=== PATIENT | female | born 1950 | race African-American/Black ===

== ENCOUNTER 2016-10-13 09:03 | Outpatient (CLI) | payer MEDICARE ==
--- NOTE | 2016-10-13 10:57 | Mammography Report ---
BONE DENSITY STUDY: DEFINITIONS: BMD = Bone Mineral Density T-score = BMD related to mean peak bone mass of young adult (mean expressed in Standard Deviation) Z-score = Age matched BMD expressed in SD World Health Organization (WHO) Diagnostic Criteria Normal T-score > -1 SD Osteopenia T-score between -1 and -2.4 SD Osteoporosis T-score -2.5 SD or below FINDINGS: The weighted average BMD of lumbar spine L1-L4 is 0.983 with a T-score of -0.6. The weighted average BMD of hip is 0.887 with a T-score of -0.4. IMPRESSION: The patient's T-score is diagnostic for normal bone density and low relative risk for fracture. NOTE: BMD is not the only risk factor for fracture; also consider factors such as the patient's age, risk of falling, previous osteoporotic fracture, family history of osteoporotic fractures, current smoker, and low body weight. Martin's triangle is a region of interest in femur, predominantly of trabecular bone. It is not a true anatomic site, and ISCD does not recommend its use clinically.
== END 2016-10-13 09:04 | disposition home or self-care (01) ==
LOC: MAMMO 09:03
DX: Z13.820 Encounter for screening for osteoporosis (principal); I10 Essential (primary) hypertension
CPT/HCPCS: 77080

== ENCOUNTER 2019-12-10 11:53 | Observation (INO) | payer MEDICARE ==
[2019-12-10] MEDS ORDERED: ASPIRIN 325 MG TAB PO ONE (12:08)
[2019-12-10 12:30] LABS: Basophils % (Auto) 0.8 % (0.0-1.8); Eosinophils # (Auto) 0.2 K/mm3 (0.0-0.4); Eosinophils % (Auto) 2.5 % (0.0-4.3); Hematocrit 36.3 % (30.3-42.9); Hemoglobin 12.2 gm/dl (10.1-14.3); Lymphocytes # (Auto) 1.8 K/mm3 (1.2-5.4); Lymphocytes % (Auto) 28.5 % (13.4-35.0); Mean Corpuscular HGB Conc 34 % (30-34); Mean Corpuscular Volume 95 fl (79-97); Monocytes # (Auto) 0.5 K/mm3 (0.0-0.8); Monocytes % (Auto) 7.7 % (0.0-7.3); Platelet Count 225 K/mm3 (140-440); Red Blood Count 3.83 M/mm3 (3.65-5.03); Red Cell Distribution Width 14.9 % (13.2-15.2)
--- NOTE | 2019-12-10 12:46 | XRay Report ---
CHEST 2 VIEWS INDICATION / CLINICAL INFORMATION: Chest Pain. COMPARISON: 05/15/14. FINDINGS: SUPPORT DEVICES: None. HEART / MEDIASTINUM: The heart size and pulmonary vasculature are normal. The aorta is normal in [place]. LUNGS / PLEURA: No significant pulmonary or pleural abnormality. No pneumothorax. ADDITIONAL FINDINGS: No significant additional findings. IMPRESSION: No acute findings. Signer Name: Patrick Mckinney MD Signed: 12/10/2019 12:42 PM Workstation Name: [id number]
[2019-12-10 12:54] LABS: BUN/Creatinine Ratio 26; Blood Urea Nitrogen 21 mg/dL (7-17); Calcium 10.1 mg/dL (8.4-10.2); Hemolysis Index 11
--- NOTE | 2019-12-10 17:27 | Emergency Department Report ---
ED Chest Pain HPI - General Chief Complaint: Chest Pain Stated Complaint: CHEST PAIN Time Seen by Provider: 12/10/19 17:08 Source: patient, family Mode of arrival: Ambulatory Limitations: Language Barrier - History of Present Illness Initial Comments: This is a 69-year-old [place]in[place] female who presents to the emergency department from home with complaint of some generalized chest discomfort, that she describes as a tightness and heaviness, that has been going on intermittently since 11/27/2019. The chest discomfort worsens at night and when laying flat. Patient has a past medical history that includes arthritis, diabetes, hypertension, high cholesterol. Her primary care physician is Dr. Brian, and she follows with Dr. Álvarez at [facility] cardiology. She was previously prescribed sublingual nitro, and more recently was given Imdur 30 mg twice daily. She has been taking the Imdur, took a sublingual nitroglycerin last night and then again earlier today, but continues to have this chest discomfort. She is scheduled to have an outpatient stress test done on Wednesday. She denies any tobacco use. No recent travel or sick contacts at home. She denies any fever, lower extremity swelling, nausea, vomiting. The patient speaks Khmer and her daughter is currently at bedside translating for us. Severity scale (0 -10): 6 - Related Data Home Medications Medication Instructions Recorded Confirmed Last Taken Aspirin EC [Halfprin EC] 81 mg PO QDAY 05/15/14 12/10/19 12/09/19 Atorvastatin (Nf) [Lipitor (Nf)] 20 mg PO QDAY 05/15/14 12/10/19 12/10/19 Gabapentin 300 mg PO BID 05/15/14 12/10/19 12/10/19 Meclizine [Antivert] 25 mg PO BID PRN 05/15/14 12/10/19 Unknown carvediloL [Coreg] 6.25 mg PO BID 05/15/14 12/10/19 12/10/19 Esomeprazole Magnesium [NexIUM] 40 mg PO BID 12/10/19 12/10/19 12/10/19 ISOSORBIDE MONOnitrate [Imdur ER] 30 mg PO QAM 12/10/19 12/10/19 12/09/19 Latanoprost 0.005% [Xalatan 0.005%] 1 drop OP QPM 12/10/19 12/10/19 12/09/19 Lifitegrast [Xiidra] 1 each OP BID 12/10/19 12/10/19 12/10/19 Losartan Potassium 25 mg PO QDAY 12/10/19 12/10/19 12/10/19 Metformin HCl [Glucophage] 1,000 mg PO BID 12/10/19 12/10/19 12/10/19 Nitroglycerin [Nitrostat] 0.4 mg SL Q5M PRN 12/10/19 12/10/19 12/10/19 Timolol Maleate [Istalol] 2.5 ml OP QDAY 12/10/19 12/10/19 12/10/19 glipiZIDE [Glucotrol] 5 mg PO ACHS 12/10/19 12/10/19 12/10/19 Allergies Allergy/AdvReac Type Severity Reaction Status Date / Time lisinopril Allergy Unknown Verified 05/14/14 19:33 Heart Score - HEART Score History: Moderately suspicious EKG: Normal Age: > 65 Risk factors: > 3 risk factors or hx of atherosclerotic disease Troponin: < normal limit HEART Score: 5 - Critical Actions Critical Actions: 4-6 pts:12-16.6% risk of adverse cardiac event. Should be admitted ED Review of Systems ROS: Stated complaint: CHEST PAIN Other details as noted in HPI Comment: All other systems reviewed and negative Constitutional: denies: chills, fever Eyes: denies: eye pain, vision change ENT: denies: ear pain, throat pain Respiratory: denies: cough, shortness of breath Cardiovascular: chest pain. denies: edema Gastrointestinal: denies: abdominal pain, vomiting Genitourinary: denies: dysuria, discharge Musculoskeletal: denies: back pain, arthralgia Skin: denies: rash, lesions Neurological: denies: headache, weakness ED Past Medical Hx - Past Medical History Previous Medical History?: Yes Hx Hypertension: Yes Hx Diabetes: Yes Hx Arthritis: Yes Hx Headaches / Migraines: Yes Additional medical history: high chol - Surgical History Past Surgical History?: Yes Hx Appendectomy: Yes Additional Surgical History: hysterectomy, fibroid removal, mesh repair in abdomen. - Social History Smoking Status: Never Smoker Substance Use Type: None - Medications Home Medications: Home Medications Medication Instructions Recorded Confirmed Last Taken Type Aspirin EC [Halfprin EC] 81 mg PO QDAY 05/15/14 12/10/19 12/09/19 History Atorvastatin (Nf) [Lipitor (Nf)] 20 mg PO QDAY 05/15/14 12/10/19 12/10/19 History Gabapentin 300 mg PO BID 05/15/14 12/10/19 12/10/19 History Meclizine [Antivert] 25 mg PO BID PRN 05/15/14 12/10/19 Unknown History carvediloL [Coreg] 6.25 mg PO BID 05/15/14 12/10/19 12/10/19 History Esomeprazole Magnesium [NexIUM] 40 mg PO BID 12/10/19 12/10/19 12/10/19 History ISOSORBIDE MONOnitrate [Imdur ER] 30 mg PO QAM 12/10/19 12/10/19 12/09/19 History Latanoprost 0.005% [Xalatan 0.005%] 1 drop OP QPM 12/10/19 12/10/19 12/09/19 History Lifitegrast [Xiidra] 1 each OP BID 12/10/19 12/10/19 12/10/19 History Losartan Potassium 25 mg PO QDAY 12/10/19 12/10/19 12/10/19 History Metformin HCl [Glucophage] 1,000 mg PO BID 12/10/19 12/10/19 12/10/19 History Nitroglycerin [Nitrostat] 0.4 mg SL Q5M PRN 12/10/19 12/10/19 12/10/19 History Timolol Maleate [Istalol] 2.5 ml OP QDAY 12/10/19 12/10/19 12/10/19 History glipiZIDE [Glucotrol] 5 mg PO ACHS 12/10/19 12/10/19 12/10/19 History ED Physical Exam - General Limitations: Language Barrier - Other Other exam information: GENERAL: The patient is well-developed well-nourished. HENT: Normocephalic. Atraumatic. Patient has moist mucous membranes. EYES: Extraocular motions are intact. NECK: Supple. Trachea is midline. CHEST/LUNGS: Clear to auscultation. There is no respiratory distress noted. HEART/CARDIOVASCULAR: Regular. There is no tachycardia. There is no murmur. ABDOMEN: Abdomen is soft, nontender. Patient has normal bowel sounds. SKIN: Skin is warm and dry. NEURO: The patient is awake, alert, and cooperative. The patient has no focal neurologic deficits. Normal speech. MUSCULOSKELETAL: There is no tenderness or deformity. There is no limitation range of motion. ED Course Vital Signs 12/10/19 12/10/19 12/10/19 11:57 17:48 17:50 Temperature 97.8 F Pulse Rate 75 Respiratory 18 14 Rate Blood Pressure Blood Pressure 112/70 [Right] O2 Sat by Pulse 97 98 96 Oximetry 12/10/19 12/10/19 12/10/19 18:00 18:15 18:30 Temperature Pulse Rate 83 70 82 Respiratory 12 14 17 Rate Blood Pressure 175/102 175/102 146/84 Blood Pressure [Right] O2 Sat by Pulse 96 96 Oximetry 12/10/19 12/10/19 12/10/19 18:45 19:00 19:11 Temperature Pulse Rate 79 81 84 Respiratory 16 19 17 Rate Blood Pressure 146/84 132/76 132/76 Blood Pressure [Right] O2 Sat by Pulse 97 96 97 Oximetry 12/10/19 12/10/19 12/10/19 19:21 19:31 19:41 Temperature Pulse Rate 79 82 Respiratory 16 11 L Rate Blood Pressure 132/76 144/75 144/75 Blood Pressure [Right] O2 Sat by Pulse 97 97 Oximetry 12/10/19 12/10/19 12/10/19 19:51 20:14 20:20 Temperature 98.2 F Pulse Rate 84 96 H Respiratory 11 L 20 Rate Blood Pressure 144/75 144/75 159/95 Blood Pressure [Right] O2 Sat by Pulse 97 82 L 98 Oximetry KRISTINA score - Kristina Score Age > 65: (1) Yes Aspirin use within the Past 7 Days: (1) Yes 3 or more CAD Risk Factors: (1) Yes 2 or more Angina events in past 24 hrs: (1) Yes Known CAD with more than 50% Stenosis: (0) No Elevated Cardiac Markers: (0) No ST Deviation Greater than 0.5mm: (0) No KRISTINA Score: 4 ED Medical Decision Making - Lab Data Result diagrams: 12/10/19 12:17 12/10/19 12:17 - EKG Data -: EKG Interpreted by Me EKG shows normal: sinus rhythm, axis, intervals, QRS complexes, ST-T waves Rate: normal - EKG Data When compared to previous EKG there are: no significant change Interpretation: unchanged when compared t (05/15/14) - Radiology Data Radiology results: image reviewed interpreted by me: Chest x-ray does not show any acute process. There are no pleural effusions, obvious pneumonia and there is no pneumothorax. No significant cardiomegaly. - Medical Decision Making This patient presents to the emergency department with some generalized chest tightness and heaviness that is been going on intermittently for the past 2 weeks. Since last night the patient has continued to have this discomfort despite taking Imdur and sublingual nitroglycerin. EKG is not consistent with any ST elevation myocardial infarction. Chest x-ray does not show any acute process. The patient's labs have been unremarkable including CBC, metabolic panel and negative troponins x2 thus far. The patient is due to have a stress test on Wednesday. With the current chest discomfort and/or angina that is res istant to the pain medication and vasodilators, the patient will be admitted to the hospital for further evaluation and treatment. She has a moderate heart and KRISTINA score. Patient was accepted for admission by the hospitalist, Dr. Mayorga. Critical Care Time: No Critical care attestation.: If time is entered above; I have spent that time in minutes in the direct care of this critically ill patient, excluding procedure time. ED Disposition Clinical Impression: Angina at rest, Acute chest pain Hypertension Qualifiers: Hypertension type: essential hypertension Qualified Code(s): I10 - Essential (primary) hypertension Disposition: OP ADMIT IP TO THIS HOSP Is pt being admited?: Yes Condition: Fair Time of Disposition: 17:27
[2019-12-10] MEDS ORDERED: ASPIRIN 325 MG TAB ONE (17:45)
--- NOTE | 2019-12-10 23:38 | History and Physical Report ---
History of Present Illness Date of examination: 12/10/19 Date of admission: 12/10/19 17:44 Chief complaint: Chest pain off and on since 11/27/2019 History of present illness: 69-year Turkmen female with history of hyperlipidemia, peripheral neuropathy, hypertension, coronary artery disease, GERD, glaucoma, and type 2 diabetes comes in for generalized chest discomfort intermittently off and on since 11/27/2019. Chest discomfort worsens at night and when lying. Patient follows with [facility] cardiology. Patient was prescribed sublingual nitro and Imdur twice daily. She has been taking them some relief but continues to have chest pain. She is scheduled to have outpatient stress test on Wednesday but comes into the emergency room because of the persistent and intermittent chest pain. - Past Medical History Previous Medical History?: Yes Hypertension: Yes Diabetes: Yes Arthritis: Yes Headaches / Migraines: Yes Additional medical history: high chol - Surgical History Past Surgical History?: Yes Hx Appendectomy: Yes Additional Surgical History: hysterectomy, fibroid removal, mesh repair in abdomen. - Social History Smoking Status: Never Smoker Substance Use Type: None Family history Htn - Medications Home Medications: Home Medications Medication Instructions Recorded Confirmed Last Taken Type Aspirin EC [Halfprin EC] 81 mg PO QDAY 05/15/14 12/10/19 12/09/19 History Atorvastatin (Nf) [Lipitor (Nf)] 20 mg PO QDAY 05/15/14 12/10/19 12/10/19 History Gabapentin 300 mg PO BID 05/15/14 12/10/19 12/10/19 History Meclizine [Antivert] 25 mg PO BID PRN 05/15/14 12/10/19 Unknown History carvediloL [Coreg] 6.25 mg PO BID 05/15/14 12/10/19 12/10/19 History Esomeprazole Magnesium [NexIUM] 40 mg PO BID 12/10/19 12/10/19 12/10/19 History ISOSORBIDE MONOnitrate [Imdur ER] 30 mg PO QAM 12/10/19 12/10/19 12/09/19 History Latanoprost 0.005% [Xalatan 0.005%] 1 drop OP QPM 12/10/19 12/10/19 12/09/19 History Lifitegrast [Xiidra] 1 each OP BID 12/10/19 12/10/19 12/10/19 History Losartan Potassium 25 mg PO QDAY 12/10/19 12/10/19 12/10/19 History Metformin HCl [Glucophage] 1,000 mg PO BID 12/10/19 12/10/19 12/10/19 History Nitroglycerin [Nitrostat] 0.4 mg SL Q5M PRN 12/10/19 12/10/19 12/10/19 History Timolol Maleate [Istalol] 2.5 ml OP QDAY 12/10/19 12/10/19 12/10/19 History glipiZIDE [Glucotrol] 5 mg PO ACHS 12/10/19 12/10/19 12/10/19 History Review of Systems ROS: Stated complaint: CHEST PAIN Other details as noted in HPI Comment: All other systems reviewed and negative Constitutional: denies: chills, fever Eyes: denies: eye pain, vision change ENT: denies: ear pain, throat pain Respiratory: denies: cough, shortness of breath Cardiovascular: chest pain. denies: edema Gastrointestinal: denies: abdominal pain, vomiting Genitourinary: denies: dysuria, discharge Musculoskeletal: denies: back pain, arthralgia Skin: denies: rash, lesions Neurological: denies: headache, weakness Medications and Allergies Allergies Allergy/AdvReac Type Severity Reaction Status Date / Time lisinopril Allergy Unknown Verified 05/14/14 19:33 Home Medications Medication Instructions Recorded Confirmed Last Taken Type Aspirin EC [Halfprin EC] 81 mg PO QDAY 05/15/14 12/10/19 12/09/19 History Atorvastatin (Nf) [Lipitor (Nf)] 20 mg PO QDAY 05/15/14 12/10/19 12/10/19 Hist ory Gabapentin 300 mg PO BID 05/15/14 12/10/19 12/10/19 History Meclizine [Antivert] 25 mg PO BID PRN 05/15/14 12/10/19 Unknown History carvediloL [Coreg] 6.25 mg PO BID 05/15/14 12/10/19 12/10/19 History Esomeprazole Magnesium [NexIUM] 40 mg PO BID 12/10/19 12/10/19 12/10/19 History ISOSORBIDE MONOnitrate [Imdur ER] 30 mg PO QAM 12/10/19 12/10/19 12/09/19 History Latanoprost 0.005% [Xalatan 0.005%] 1 drop OP QPM 12/10/19 12/10/19 12/09/19 History Lifitegrast [Xiidra] 1 each OP BID 12/10/19 12/10/19 12/10/19 History Losartan Potassium 25 mg PO QDAY 12/10/19 12/10/19 12/10/19 History Metformin HCl [Glucophage] 1,000 mg PO BID 12/10/19 12/10/19 12/10/19 History Nitroglycerin [Nitrostat] 0.4 mg SL Q5M PRN 12/10/19 12/10/19 12/10/19 History Timolol Maleate [Istalol] 2.5 ml OP QDAY 12/10/19 12/10/19 12/10/19 History glipiZIDE [Glucotrol] 5 mg PO ACHS 12/10/19 12/10/19 12/10/19 History Exam - Constitutional Vitals: Temp Pulse Resp BP Pulse Ox 98.2 F 96 H 20 159/95 98 12/10/19 20:20 12/10/19 20:20 12/10/19 20:20 12/10/19 20:20 12/10/19 20:20 General appearance: Present: no acute distress, well-nourished - EENT Eyes: Present: PERRL ENT: hearing intact, clear oral mucosa - Neck Neck: Present: supple, normal ROM - Respiratory Respiratory effort: normal Respiratory: bilateral: CTA - Cardiovascular Rhythm: regular Heart Sounds: Present: S1 & S2. Absent: rub, click - Extremities Extremities: pulses symmetrical, No edema Peripheral Pulses: within normal limits - Abdominal General gastrointestinal: Present: soft, non-tender, non-distended, normal bowel sounds Female genitourinary: Present: normal - Integumentary Integumentary: Present: clear, warm, dry - Musculoskeletal Musculoskeletal: gait normal, strength equal bilaterally - Psychiatric Psychiatric: appropriate mood/affect, intact judgment & insight - Neurologic Neurologic: CNII-XII intact, moves all extremities HEART Score - HEART Score History: Highly suspicious (78) EKG: Normal Age: > 65 Risk factors: > 3 risk factors or hx of atherosclerotic disease Troponin: Troponin T < 0.010 ng/mL (0.00-0.029) 12/10/19 17:38 Troponin: < normal limit HEART Score: 6 - Critical Actions Critical Actions: 4-6 pts:12-16.6% risk of adverse cardiac event. Should be admitted Results - Labs CBC & Chem 7: 12/10/19 12:17 12/10/19 12:17 Labs: Laboratory Last Values WBC 6.3 K/mm3 (4.5-11.0) 12/10/19 12:17 RBC 3.83 M/mm3 (3.65-5.03) 12/10/19 12:17 Hgb 12.2 gm/dl (10.1-14.3) 12/10/19 12:17 Hct 36.3 % (30.3-42.9) 12/10/19 12:17 MCV 95 fl (79-97) 12/10/19 12:17 MCH 32 pg (28-32) 12/10/19 12:17 MCHC 34 % (30-34) 12/10/19 12:17 RDW 14.9 % (13.2-15.2) 12/10/19 12:17 Plt Count 225 K/mm3 (140-440) 12/10/19 12:17 Lymph % (Auto) 28.5 % (13.4-35.0) 12/10/19 12:17 [place] % (Auto) 7.7 % (0.0-7.3) H 12/10/19 12:17 Eos % (Auto) 2.5 % (0.0-4.3) 12/10/19 12:17 Baso % (Auto) 0.8 % (0.0-1.8) 12/10/19 12:17 Lymph # 1.8 K/mm3 (1.2-5.4) 12/10/19 12:17 [place] # 0.5 K/mm3 (0.0-0.8) 12/10/19 12:17 Eos # 0.2 K/mm3 (0.0-0.4) 12/10/19 12:17 Baso # 0.0 K/mm3 (0.0-0.1) 12/10/19 12:17 Seg Neutrophils % 60.5 % (40.0-70.0) 12/10/19 12:17 Seg Neutrophils # 3.8 K/mm3 (1.8-7.7) 12/10/19 12:17 Sodium 142 mmol/L (137-145) 12/10/19 12:17 Potassium 5.1 mmol/L (3.6-5.0) H 12/10/19 12:17 Chloride 105.2 mmol/L (98-107) 12/10/19 12:17 Carbon Dioxide 24 mmol/L (22-30) 12/10/19 12:17 Anion Gap 18 mmol/L 12/10/19 12:17 BUN 21 mg/dL (7-17) H 12/10/19 12:17 Creatinine 0.8 mg/dL (0.6-1.2) 12/10/19 12:17 Estimated GFR > 60 ml/min 12/10/19 12:17 BUN/Creatinine Ratio 26 % 12/10/19 12:17 Glucose 85 mg/dL (65-100) 12/10/19 12:17 Calcium 10.1 mg/dL (8.4-10.2) 12/10/19 12:17 Troponin T < 0.010 ng/mL (0.00-0.029) 12/10/19 17:38 Short CBC 12/10/19 Range/Units 12:17 WBC 6.3 (4.5-11.0) K/mm3 Hgb 12.2 (10.1-14.3) gm/dl Hct 36.3 (30.3-42.9) % Plt Count 225 (140-440) K/mm3 BMP 12/10/19 12:17 Sodium 142 Potassium 5.1 H Chloride 105.2 Carbon Dioxide 24 BUN 21 H Creatinine 0.8 Glucose 85 Calcium 10.1 Cardiac Enzymes 12/10/19 12/10/19 12/10/19 Range/Units 12:17 14:45 17:38 Troponin T < 0.010 < 0.010 < 0.010 (0.00-0.029) ng/mL - Imaging and Cardiology EKG: report reviewed (Sinus rhythm heart rate of 78/min no acute ST-T wave changes) Chest x-ray: report reviewed (No acute findings) Marsh/IV: IV Catheter Type [Right Hand] INT / Saline Lock Assessment and Plan Advance Directives: Yes (Full code) VTE prophylaxis?: Chemical Plan of care discussed with patient/family: Yes - Patient Problems (1) Acute chest pain Current Visit: Yes Status: Acute Plan to address problem: Serial troponins Lexiscan in the morning Cardiology consult (2) T2DM (type 2 diabetes mellitus) Current Visit: Yes Status: Chronic Qualifiers: Diabetes mellitus long wall shear operator insulin use: unspecified long wall shear operator insulin use status Plan to address problem: Coverage for now check hemoglobin A1c (3) Hypertension Current Visit: Yes Status: Chronic Qualifiers: Hypertension type: essential hypertension Qualified Code(s): I10 - Essential (primary) hypertension Plan to address problem: Continue antihypertensives (4) CAD (coronary artery disease) Current Visit: No Status: Chronic Plan to address problem: Continue ISMO (5) Hyperlipidemia Current Visit: No Status: Chronic Plan to address problem: Continue statins (6) Hyperkalemia Current Visit: Yes Status: Acute Plan to address problem: Mild IV fluids (7) DVT prophylaxis Current Visit: Yes Status: Acute Plan to address problem: On heparin and GI prophylaxis
[2019-12-10] MEDS ORDERED: MECLIZINE 25 MG TAB PO PRN (23:40)
[2019-12-10] MEDS ORDERED: oxyCODONE /ACETAMINOPHEN 5-325MG TAB PO PRN (23:43)
[2019-12-10] MEDS ORDERED: ONDANSETRON 4 MG/2 ML INJ IV PRN (23:43)
[2019-12-10] MEDS ORDERED: HYDROmorphone 1 MG/1 ML INJ IV PRN (23:43)
[2019-12-10] MEDS ORDERED: ACETAMINOPHEN 325 MG TAB PO PRN (23:43)
[2019-12-10] MEDS ORDERED: METOCLOPRAMIDE 10 MG/2 ML INJ IV PRN ×2 (23:43→23:51)
[2019-12-10] MEDS ORDERED: LIFITEGRAST OP SCH (23:45)
[2019-12-11] MEDS: carvediloL 6.25 MG TAB PO SCH ×2 (00:14→12:38)
[2019-12-11] MEDS ORDERED: glipiZIDE 5 MG TAB PO SCH (07:30)
[2019-12-11 08:29] LABS: Basophils % (Auto) 0.6 % (0.0-1.8); Eosinophils # (Auto) 0.2 K/mm3 (0.0-0.4); Hematocrit 38.2 % (30.3-42.9); Hemoglobin 12.8 gm/dl (10.1-14.3); Lymphocytes # (Auto) 1.6 K/mm3 (1.2-5.4); Lymphocytes % (Auto) 28.9 % (13.4-35.0); Mean Corpuscular HGB Conc 33 % (30-34); Mean Corpuscular Volume 92 fl (79-97); Monocytes # (Auto) 0.5 K/mm3 (0.0-0.8); Monocytes % (Auto) 8.2 % (0.0-7.3); Platelet Count 216 K/mm3 (140-440); Red Blood Count 4.14 M/mm3 (3.65-5.03); Red Cell Distribution Width 15.2 % (13.2-15.2)
[2019-12-11] MEDS ORDERED: REGADENOSON 0.4 MG/5 ML INJ IV ONE (08:38)
[2019-12-11] MEDS: metFORMIN 500 MG TAB PO SCH ×2 (08:49→17:48)
[2019-12-11 09:01] LABS: Alanine Aminotransferase 21 units/L (7-56); Albumin 4.4 g/dL (3.9-5); Blood Urea Nitrogen 15 mg/dL (7-17); Calcium 9.8 mg/dL (8.4-10.2); Hemolysis Index 4
[2019-12-11 09:02] LABS: BUN/Creatinine Ratio 25
[2019-12-11] MEDS ORDERED: TIMOLOL MALEATE OP SCH (10:00)
[2019-12-11] MEDS ORDERED: ASPIRIN EC 81 MG TAB PO SCH (10:00)
[2019-12-11] MEDS ORDERED: LOSARTAN POTASSIUM 25 MG PO SCH (10:00)
[2019-12-11] MEDS ORDERED: NON-FORMULARY EACH (Esomeprazole Magnesium [Nexium] 40 MG) PO SCH (10:00)
[2019-12-11] MEDS ORDERED: NON-FORMULARY EACH (Metformin Hcl [Glucophage] 1,000 MG) PO SCH (10:00)
[2019-12-11] MEDS ORDERED: FAMOTIDINE 20 MG/2 ML INJ IV SCH (10:00)
[2019-12-11] MEDS ORDERED: GABAPENTIN 300 MG CAP PO SCH (10:00)
[2019-12-11] MEDS ORDERED: PANTOPRAZOLE 40 MG TAB PO SCH (10:00)
[2019-12-11] MEDS ORDERED: LOSARTAN 25 MG TAB PO SCH (10:00)
[2019-12-11] MEDS: glipiZIDE 5 MG TAB PO SCH ×2 (11:09→17:48)
--- NOTE | 2019-12-11 12:31 | Consultation ---
History of Present Illness Consult date: 12/11/19 Requesting physician: AMERICA WADE Consult reason: chest pain History of present illness: The patient is a 69 YO female with a past medial history of nonobstructive CAD, HTN, DM, HLP, GERD. She is followed in our office by Dr. Álvarez. She presented with c/o intermittent chest pain since 11/27/2019. Pt describes her ch est discomfort as a heaviness which is aggravated by lying down, lasts 5-10 minutes per episode. Pt was seen via telehealth appointment by Dr. Álvarez on 12/07/2019 and was initiated on Imdur and scheduled for OP lexiscan MPI stress test on 12/12/2019. However, her chest pain worsened and thus she decided to present to ED for further eval/management. Pt denies any SOB, palpitations, n/v, diaphoresis, dizziness or syncope. LHC done 04/2014 showed mild CAD, LAD with scattered LI, prox RCA 25% stenosis, normal EF. tte done 05/2014 showed EF 55-60%, no significant abnormalities. Past History Past Medical History: other (as per HPI) Medications and Allergies Allergies Allergy/AdvReac Type Severity Reaction Status Date / Time lisinopril Allergy Unknown Verified 05/14/14 19:33 Home Medications Medication Instructions Recorded Confirmed Last Taken Type Aspirin EC [Halfprin EC] 81 mg PO QDAY 05/15/14 12/10/19 12/09/19 History Atorvastatin (Nf) [Lipitor (Nf)] 20 mg PO QDAY 05/15/14 12/10/19 12/10/19 History Gabapentin 300 mg PO BID 05/15/14 12/10/19 12/10/19 History Meclizine [Antivert] 25 mg PO BID PRN 05/15/14 12/10/19 Unknown History carvediloL [Coreg] 6.25 mg PO BID 05/15/14 12/10/19 12/10/19 History Esomeprazole Magnesium [NexIUM] 40 mg PO BID 12/10/19 12/10/19 12/10/19 History ISOSORBIDE MONOnitrate [Imdur ER] 30 mg PO QAM 12/10/19 12/10/19 12/09/19 History Latanoprost 0.005% [Xalatan 0.005%] 1 drop OP QPM 12/10/19 12/10/19 12/09/19 His tory Lifitegrast [Xiidra] 1 each OP BID 12/10/19 12/10/19 12/10/19 History Losartan Potassium 25 mg PO QDAY 12/10/19 12/10/19 12/10/19 History Metformin HCl [Glucophage] 1,000 mg PO BID 12/10/19 12/10/19 12/10/19 History Nitroglycerin [Nitrostat] 0.4 mg SL Q5M PRN 12/10/19 12/10/19 12/10/19 History Timolol Maleate [Istalol] 2.5 ml OP QDAY 12/10/19 12/10/19 12/10/19 History glipiZIDE [Glucotrol] 5 mg PO ACHS 12/10/19 12/10/19 12/10/19 History Active Meds: Active Medications Acetaminophen (Tylenol) 650 mg PO Q4H PRN PRN Reason: Pain MILD(1-3)/Fever >100.5/[place] Aspirin (Halfprin Ec) 81 mg PO QDAY [facility] Atorvastatin Calcium (Lipitor) 20 mg PO QDAY [facility] Carvedilol (Coreg) 6.25 mg PO BID [facility] Last Admin: 12/11/19 00:14 Dose: 6.25 mg Documented by: Gabapentin (Gabapentin) 300 mg PO BID [facility] Glipizide (Glucotrol) 5 mg PO BIDDIAB [facility] Last Admin: 12/11/19 11:09 Dose: Not Given Documented by: Hydromorphone HCl (Dilaudid) 0.5 mg IV Q3H PRN PRN Reason: Pain , Severe (7-10) Isosorbide Mononitrate (Imdur) 30 mg PO QAM [facility] Latanoprost (Latanoprost 0.005%) 1 drops OD QPM [facility] Losartan Potassium (Cozaar) 25 mg PO QDAY [facility] Meclizine HCl (Antivert) 25 mg PO BID PRN PRN Reason: Vertigo Metformin HCl (Glucophage) 1,000 mg PO BIDDIAB [facility] Last Admin: 12/11/19 08:49 Dose: Not Given Documented by: Metoclopramide HCl (Reglan) 5 mg IV Q6H PRN PRN Reason: Nausea And Vomiting Miscellaneous Medication (Lifitegrast [Xiidra]) 1 each OP BID [facility] Miscellaneous Medication (Timolol Maleate [Istalol]) 2.5 ml OP QDAY [facility] Ondansetron HCl (Zofran) 4 mg IV Q8H PRN PRN Reason: Nausea And Vomiting Oxycodone/Acetaminophen (Percocet 5/325) 1 tab PO Q6H PRN PRN Reason: Pain, Moderate (4-6) Pantoprazole Sodium (Protonix) 40 mg PO BID CHINMAY Sodium Chloride (Sodium Chloride Flush Syringe 10 Ml) 10 ml IV BID CHINMAY Sodium Chloride (Sodium Chloride Flush Syringe 10 Ml) 10 ml IV PRN PRN PRN Reason: LINE FLUSH Review of Systems Constitutional: no weight loss, no weight gain, no fever, no chills, no sweats Ears, nose, mouth and throat: no ear pain, no nose pain, no sinus pressure, no sinus pain Cardiovascular: chest pain, no orthopnea, no palpitations, no rapid/irregular heart beat, no edema, no syncope, no lightheadedness, no shortness of breath, no dyspnea on exertion, no leg edema Respiratory: no cough, no shortness of breath, no dyspnea on exertion, no congestion, no wheezing, no pain on inspiration Gastrointestinal: no abdominal pain, no nausea, no vomiting, no diarrhea, no constipation, no change in bowel habits Genitourinary Female: no pelvic pain, no flank pain, no dysuria, no urinary frequency, no urgency Musculoskeletal: no neck stiffness, no neck pain, no shooting arm pain, no arm numbness/tingling, no low back pain, no shooting leg pain Integumentary: no rash, no pruritis, no redness, no sores, no wounds Neurological: no head injury, no paralysis, no weakness, no parathesias, no nu mbness, no tingling, no seizures, no syncope Psychiatric: no anxiety Endocrine: no cold intolerance, no heat intolerance Hematologic/Lymphatic: no easy bruising, no easy bleeding Allergic/Immunologic: no urticaria Physical Examination Vital Signs Temp Pulse Resp BP Pulse Ox 97.8 F 75 18 112/70 97 12/10/19 11:57 12/10/19 11:57 12/10/19 11:57 12/10/19 11:57 12/10/19 11:57 General appearance: no acute distress HEENT: Positive: PERRL, Normocephaly, Mucus Membranes Moist Neck: Positive: neck supple, trachea midline Cardiac: Positive: Reg Rate and Rhythm, S1/S2 Lungs: Positive: Decreased Breath Sounds Neuro: Positive: Grossly Intact Abdomen: Negative: Tender Skin: Negative: Rash Musculoskeletal: No Pain Extremities: Absent: edema Results 12/11/19 07:28 12/11/19 07:28 Cardiac Enzymes 12/11/19 Range/Units 07:28 AST 22 (5-40) units/L CBC 12/10/19 12/11/19 Range/Units 12:17 07:28 WBC 6.3 5.5 (4.5-11.0) K/mm3 RBC 3.83 4.14 (3.65-5.03) M/mm3 Hgb 12.2 12.8 (10.1-14.3) gm/dl Hct 36.3 38.2 (30.3-42.9) % Plt Count 225 216 (140-440) K/mm3 Lymph # 1.8 1.6 (1.2-5.4) K/mm3 [place] # 0.5 0.5 (0.0-0.8) K/mm3 Eos # 0.2 0.2 (0.0-0.4) K/mm3 Baso # 0.0 0.0 (0.0-0.1) K/mm3 Comprehensive Metabolic Panel 12/10/19 12/11/19 Range/Units 12:17 07:28 Sodium 142 143 (137-145) mmol/L Potassium 5.1 H 4.1 (3.6-5.0) mmol/L Chloride 105.2 102.5 (98-107) mmol/L Carbon Dioxide 24 25 (22-30) mmol/L BUN 21 H 15 (7-17) mg/dL Creatinine 0.8 0.6 (0.6-1.2) mg/dL Glucose 85 164 H (65-100) mg/dL Calcium 10.1 9.8 (8.4-10.2) mg/dL AST 22 (5-40) units/L ALT 21 (7-56) units/L Alkaline Phosphatase 61 (35-129) units/L Total Protein 7.6 (6.3-8.2) g/dL Albumin 4.4 (3.9-5) g/dL - Imaging and Cardiology Echo: report reviewed (05/2014 showed EF 55-60%, no significant abnormalities. ) Cardiac cath: report reviewed ( 04/2014 showed mild CAD, LAD with scattered LI, prox RCA 25% stenosis, normal EF.) EKG: report reviewed, image reviewed EKG interpretations - Telemetry EKG Rhythm: Sinus Rhythm - EKG Sinus rhythms and dysrhythmias: sinus rhythm Assessment and Plan Chest pain currently resolved, AMI r/o. S/p lexiscan MPI stress test this AM which was negative. Currently stable cardiac status. Pt may discharge from cardiology standpoint. If chest pain returns/persists despite optimal medical therapy, consider LHC as OP. Additionally, pt has plans to f/u with her GI specialist in setting of GERD. Follow up telehealth appt with Dr. Álvarez on 12/22/2019 @ 2:00PM. The patient has been seen in conjunction with Dr. Weaver who agrees with the assessment and plan of care. - Patient Problems (1) Chest pain Current Visit: Yes Status: Resolved (2) Nonobstructive atherosclerosis of coronary artery Current Visit: Yes Status: Chronic (3) Hypertension Current Visit: Yes Status: Chronic Qualifiers: Hypertension type: essential hypertension Qualified Code(s): I10 - Essential (primary) hypertension (4) Diabetes Current Visit: Yes Status: Chronic (5) Hyperlipidemia Current Visit: Yes Status: Chronic (6) GERD (gastroesophageal reflux disease) Current Visit: Yes Status: Chronic
[2019-12-11] MEDS ORDERED: LATANOPROST 0.005% OPHTH SOLN 2.5 ML OD SCH (18:00)
--- NOTE | 2019-12-11 18:26 | Discharge Summary ---
Providers - Providers Date of Admission: 12/10/19 17:44 Date of discharge: 12/11/19 Attending physician: AMERICA WADE 12/11/19 08:00 Consult to Physician [CONS] Routine Comment: Consulting Provider: ODETTE SOSA Physician Instructions: Reason For Exam: Chest pain/Angina- Primary care physician: REBECA SOTO Hospitalization Condition: Fair Pertinent studies: Lexiscan negative Hospital course: 69-year Nigerian female with history of hyperlipidemia, peripheral neuropathy, hypertension, coronary artery disease, GERD, glaucoma, and type 2 diabetes comes in for generalized chest discomfort intermittently off and on since 11/27/2019. Chest discomfort worsens at night and when lying. Patient follows with [facility] cardiology. Patient was prescribed sublingual nitro and Imdur twice daily. She has been taking them some relief but continues to have chest pain. She is scheduled to have outpatient stress test on Wednesday but comes into the emergency room because of the persistent and intermittent chest pain. (1) Acute coronary syndrome Current Visit: Yes Status: Acute Plan to address problem: Serial troponins negative Lexiscan negative Cardiology consult (2) T2DM (type 2 diabetes mellitus) Current Visit: Yes Status: Chronic Qualifiers: Diabetes mellitus fdc insulin use: unspecified fdc insulin use status Plan to address problem: Continue hypoglycemics (3) Hypertension Current Visit: Yes Status: Chronic We will stop the losartan Patient constantly hypotensive around 98/60 Decrease the Coreg to 3.125 every 12 Continue a small (4) CAD (coronary artery disease) Current Visit: No Status: Chronic Plan to address problem: Continue ISMO (5) Hyperlipidemia Current Visit: No Status: Chronic Plan to address problem: Continue statins (6) Hyperkalemia Current Visit: Yes Status: Acute Plan to address problem: Mild IV fluids (7) GERD Patient will be discharged on Protonix Disposition: DC-01 TO HOME OR SELFCARE Time spent for discharge: 35 minutes - Discharge Diagnoses (1) Acute chest pain Status: Acute (2) T2DM (type 2 diabetes mellitus) Status: Chronic 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 fdc insulin use status (3) Hypertension Status: Chronic Qualifiers: Hypertension type: essential hypertension Qualified Code(s): I10 - Essential (primary) hypertension (4) CAD (coronary artery disease) Status: Chronic (5) Hyperlipidemia Status: Chronic (6) Hyperkalemia Status: Acute (7) DVT prophylaxis Status: Acute Core Measure Documentation - Palliative Care Palliative Care/ Comfort Measures: Not Applicable - Core Measures Any of the following diagnoses?: none Exam - Constitutional Vitals: Temp Pulse Resp BP Pulse Ox 98.2 F 91 H 18 94/59 97 12/11/19 16:54 12/11/19 16:54 12/11/19 16:54 12/11/19 16:54 12/11/19 16:54 General appearance: Present: no acute distress, well-nourished - EENT Eyes: Present: PERRL ENT: hearing intact, clear oral mucosa - Neck Neck: Present: supple, normal ROM - Respiratory Respiratory effort: normal Respiratory: bilateral: CTA - Cardiovascular Heart rate: 76 Rhythm: regular Heart Sounds: Present: S1 & S2. Absent: rub, click - Extremities Extremities: pulses symmetrical, No edema Peripheral Pulses: within normal limits - Abdominal General gastrointestinal: Present: soft, non-tender, non-distended, normal bowel sounds Female genitourinary: Present: normal - Integumentary Integumentary: Present: clear, warm, dry - Musculoskeletal Musculoskeletal: gait normal, strength equal bilaterally - Psychiatric Psychiatric: appropriate mood/affect, intact judgment & insight - Neurologic Neurologic: CNII-XII intact, moves all extremities - Allied Health Allied health notes reviewed: nursing, case management Plan Activity: no restrictions Diet: regular (Thank you) Follow up with: REBECA SOTO MD [Primary Care Provider] - 7 Days
[2019-12-11 20:04] VITALS: BP 97/56
--- NOTE | 2019-12-12 02:41 | Treadmill Report ---
PHARMACOLOGIC MYOCARDIAL PERFUSION IMAGING REPORT The patient is a 69-year-old female with history of atypical chest pains, underwent pharmacological stress testing using IV regadenoson. The patient's baseline EKG showed sinus rhythm, within normal limits. No significant EKG changes with vasodilation. The patient has some vague, intermittent chest pain at rest. The patient underwent myocardial perfusion imaging at rest using technetium 98m sestamibi at rest, followed by images obtained 30-40 minutes post-vasodilation using technetium 98m sestamibi. The resting images and post-vasodilation perfusion images showed normal perfusion. Left ventricular size was normal with excellent contractility, calculated ejection fraction of 89%, may be overestimation. Transient ischemic dilation was found to be 0.56. FINAL IMPRESSION: 1. No chest pain during vasodilation test. 2. No EKG changes to suggest ischemia. 3. Normal myocardial perfusion imaging with no evidence of ischemia. 4. Left ventricular systolic function is normal. JOB# [id number] JAGDISH/RONI UMAÑA
== END 2019-12-11 19:50 | disposition home or self-care (01) ==
LOC: ED 11:53 → 4A 17:44
PROVIDERS: ADMIT Internal Medicine; ATTEND Internal Medicine
DX: R07.89 Other chest pain (principal); E11.40 Type 2 diabetes mellitus with diabetic neuropathy, unspecified; I10 Essential (primary) hypertension; I25.119 Atherosclerotic heart disease of native coronary artery with unspecified angina pectoris; E78.5 Hyperlipidemia, unspecified; E87.5 Hyperkalemia; K21.9 Gastro-esophageal reflux disease without esophagitis; G43.909 Migraine, unspecified, not intractable, without status migrainosus; M19.90 Unspecified osteoarthritis, unspecified site; Z90.710 Acquired absence of both cervix and uterus; Z90.49 Acquired absence of other specified parts of digestive tract; Z79.82 Long term (current) use of aspirin; Z79.84 Long term (current) use of oral hypoglycemic drugs; Z79.899 Other long term (current) drug therapy; Z88.8 Allergy status to other drugs, medicaments and biological substances
CPT/HCPCS: 36415; 71046; 78452; 80048; 80053; 82962; 84484; 85025; 93005; 93017; 99285; A9270; A9502; G0378; J2785

== ENCOUNTER 2019-12-28 07:20 | Day surgery (SDC) | payer MEDICARE ==
[2019-12-28] MEDS ORDERED: ASPIRIN EC 325 MG TAB PO ONE (07:53)
[2019-12-28 08:19] LABS: Basophils % (Auto) 0.6 % (0.0-1.8); Eosinophils # (Auto) 0.2 K/mm3 (0.0-0.4); Eosinophils % (Auto) 2.8 % (0.0-4.3); Hematocrit 38.6 % (30.3-42.9); Hemoglobin 12.9 gm/dl (10.1-14.3); Lymphocytes # (Auto) 1.4 K/mm3 (1.2-5.4); Lymphocytes % (Auto) 26.4 % (13.4-35.0); Mean Corpuscular HGB Conc 33 % (30-34); Mean Corpuscular Volume 93 fl (79-97); Monocytes # (Auto) 0.4 K/mm3 (0.0-0.8); Monocytes % (Auto) 7.6 % (0.0-7.3); Platelet Count 218 K/mm3 (140-440); Red Blood Count 4.15 M/mm3 (3.65-5.03); Red Cell Distribution Width 14.6 % (13.2-15.2)
[2019-12-28 08:30] LABS: Blood Urea Nitrogen 14 mg/dL (7-17); Hemolysis Index 2; Partial Thromboplastin Time 23.6 Sec. (24.2-36.6)
[2019-12-28 08:34] LABS: INR 0.89 (0.87-1.13)
[2019-12-28 08:37] LABS: BUN/Creatinine Ratio 20
[2019-12-28] MEDS: SODIUM CHLORIDE 0.9% 500 ML 500 ML IV SCH ×2 (09:10→10:33)
[2019-12-28] MEDS ORDERED: HEPARIN 10,000 UNITS/10 ML VIAL ONE (10:17)
[2019-12-28] MEDS ORDERED: fentaNYL 100 MCG/2 ML INJ ONE (10:17)
[2019-12-28] MEDS ORDERED: MIDAZOLAM 2 MG/2 ML INJ ONE (10:17)
[2019-12-28] MEDS ORDERED: VERAPAMIL 5 MG/2 ML INJ ONE (10:17)
[2019-12-28] MEDS ORDERED: HEPARIN/NS 5000 UNIT/500ML 1,000 ML IR ONE (10:17)
[2019-12-28] MEDS ORDERED: LIDOCAINE (2%) 20 MG/1 ML VIAL 20 ML MDV INFILTRATI ONE (10:17)
[2019-12-28] MEDS: NITROGLYCERIN SYRINGE 3 ML ONE ×2 (10:36→10:38)
[2019-12-28] MEDS: METOPROLOL TARTRATE 5 MG/5 ML INJ IV ONE ×2 (10:43→10:47)
[2019-12-28] MEDS ORDERED: HYDROcodone/ACETAMINOPHEN 5-325 MG TAB PO PRN (10:58)
[2019-12-28] MEDS ORDERED: traMADol 50 MG TAB PO PRN (10:58)
--- NOTE | 2019-12-28 11:01 | Short Stay Summary ---
Short Stay Documentation Date of service: 12/28/19 - History H&P: obtained from office - Allergies and Medications Current Medications: Allergies lisinopril Allergy (Verified 05/14/14 19:33) Unknown Home Medications Medication Instructions Recorded Confirmed Last Taken Type Aspirin EC [Halfprin EC] 81 mg PO QDAY 05/15/14 12/28/19 12/27/19 History Lifitegrast [Xiidra] 1 each OP BID 12/10/19 12/28/19 12/27/19 History Nitroglycerin [Nitrostat] 0.4 mg SL Q5M PRN 12/10/19 12/28/19 12/27/19 History glipiZIDE [Glucotrol] 5 mg PO ACHS 12/10/19 12/28/19 12/27/19 History Gabapentin 300 mg PO BID capsule 12/11/19 12/28/19 12/27/19 Rx Latanoprost 0.005% 1 drops OD QPM bottle 12/11/19 12/28/19 12/27/19 Rx Meclizine [Antivert] 25 mg PO BID PRN tablet 12/11/19 12/28/19 12/27/19 Rx Pantoprazole [Protonix TAB] 40 mg PO BID #30 tablet 12/11/19 12/28/19 12/27/19 Rx carvediloL [Coreg] 3.125 mg PO BID tablet 12/11/19 12/28/19 12/27/19 Rx metFORMIN [Glucophage] 1,000 mg PO BIDDIAB tablet 12/11/19 12/28/19 12/27/19 Rx AtorvaSTATin [Lipitor] 20 mg PO QHS 12/28/19 12/28/19 12/27/19 History Losartan Potassium 25 mg PO DAILY 12/28/19 12/28/19 12/27/19 History Active Medications Sodium Chloride (Nacl 0.9% 500 Ml) 500 mls @ 50 mls/hr IV DIRECT [facility] Stop: 12/28/19 17:59 Last Admin: 12/28/19 10:33 Dose: 50 mls/hr Documented by: - Brief post op/procedure progress note Date of procedure: 12/28/19 Pre-op diagnosis: cp Post-op diagnosis: same Procedure: see report Anesthesia: local Estimated blood loss: none Pathology: none - Disposition Condition at discharge: Good Disposition: DC-01 TO HOME OR SELFCARE - Discharge Diagnoses (1) Chest pain at rest Status: Acute (2) Hyperlipidemia Status: Chronic Qualifiers: Hyperlipidemia type: mixed hyperlipidemia Qualified Code(s): E78.2 - Mixed hyperlipidemia (3) Hypertension Status: Chronic Qualifiers: Hypertension type: essential hypertension (4) Nonobstructive atherosclerosis of coronary artery Status: Chronic (5) T2DM (type 2 diabetes mellitus) Status: Chronic Qualifiers: Diabetes mellitus fpc insulin use: with fpc use Diabetes mellitus complication status: without complication Qualified Code(s): E11.9 - Type 2 diabetes mellitus without complications; Z79.4 - nursing home (current) use of insulin Short Stay Discharge Plan Activity: advance as tolerated Diet: low fat, low cholesterol, diabetic Wound: keep clean and dry Special Instructions: hold Metformin (for two days) Follow up with: REBECA SOTO MD [Primary Care Provider] - 7 Days
[2019-12-28 13:38] VITALS: BP 100/62
--- NOTE | 2019-12-28 15:52 | Cardiac Catherization Report ---
PROCEDURE: Left heart catheterization. PROCEDURE DONE BY: Adam Billy MD ORDERING PHYSICIANS: Dr. Álvarez and Dr. Weaver. CLINICAL INFORMATION: This is a 69-year-old [place] female with known coronary arterial disease, cath in 2014, had a proximal RCA 25%, normal LV function, had chest pain with negative stress test, here for recurrent chest pains, here for suspected coronary artery disease, hypertension, hyperlipidemia. Procedure was done with moderate sedation, started at 10:30, finished at 10:45, 15 minutes of moderate sedation. DESCRIPTION OF PROCEDURE: Left heart catheterization was performed via the right radial artery, sterile technique, local anesthesia, 6-Hungarian radial sheath inserted. Left system engaged with JL3.5 catheter. Left main is a medium caliber vessel, patent, bifurcates into a small to medium caliber LAD, mid to distal becomes a small caliber, patent with mild luminal irregularities. LAD mid has a 30% lesion. Diagonal 1 is a small caliber vessel, is patent. Circumflex is a small to medium caliber vessel, patent with mild luminal irregularities. OM1 is small caliber. OM2 is small caliber. RCA engaged with JR4 catheter, is a large dominant vessel, proximal 20-30%, rest of the vessel is patent with mild luminal irregularities. PDA, PLV are large-caliber vessels, the long branches are patent. LV gram done in SINHALA and CHANDLER view, shows normal LV function, EF 55-60%. LVEDP 14 mmHg, LV is 163, aortic is 164/75. No gradient across the aortic valve on pullback. 5-Hungarian catheters all taken over guidewire, 6-Hungarian radial sheath was discontinued. Radial band applied. No hematoma, no bleeding. SUMMARY: Left main patent, LAD patent with mild luminal irregularities, mid 30%; small caliber vessel, mid to distal; diagonal 1, small caliber vessel, patent; circumflex, small to medium caliber and patent, mild luminal irregularities; OM1 is small caliber, OM2 is small caliber; RCA is a large dominant vessel, proximal 20-30%, no change from 2015; PDA and PLV are large caliber vessels with normal LV function. Discussed this with the patient and the patient's family in detail. JOB# [id number] ANDERSON/NTS
== END 2019-12-28 14:13 | disposition home or self-care (01) ==
LOC: CATHLABREC 07:20
PROVIDERS: ATTEND Internal Medicine
DX: R07.89 Other chest pain (principal); R94.39 Abnormal result of other cardiovascular function study; I10 Essential (primary) hypertension; E78.5 Hyperlipidemia, unspecified; E11.9 Type 2 diabetes mellitus without complications; I25.118 Atherosclerotic heart disease of native coronary artery with other forms of angina pectoris; K21.9 Gastro-esophageal reflux disease without esophagitis; M19.90 Unspecified osteoarthritis, unspecified site; Z98.890 Other specified postprocedural states; Z88.8 Allergy status to other drugs, medicaments and biological substances; Z79.84 Long term (current) use of oral hypoglycemic drugs; Z79.899 Other long term (current) drug therapy; Z79.82 Long term (current) use of aspirin; Z98.49 Cataract extraction status, unspecified eye; Z90.710 Acquired absence of both cervix and uterus; Z83.3 Family history of diabetes mellitus
CPT/HCPCS: 36415; 80048; 85025; 85610; 85730; 93005; 93458; 99156; C1894; J1644; J2250; J3010; J7040; Q9967